=== PATIENT | male | born 1975 | race Caucasian/White ===

== ENCOUNTER 2016-06-18 10:39 | Emergency (ER) | payer OTHER | END 2016-06-18 11:20 | disposition left against medical advice (07) | LOC: ER 10:39 | DX: Z53.21 Procedure and treatment not carried out due to patient leaving prior to being seen by health care provider (principal) ==

== ENCOUNTER 2016-06-18 11:27 | Emergency (ER) | payer OTHER ==
--- NOTE | 2016-06-23 10:36 | ER ---
ADMIT: 06/18/2016 RM/LOC: ER [facility] MR#: [id number] [address] [id number] [address] [place] [address] Emergency Room Report SEX: M AGE: 40 : 1975 DATE: 06/18/2016 ADDENDUM: 40-year-old male coming in with right forearm pain. He had this operated on, I think like a week or so ago. He has fairly recently continued to have pain. However, he is not elevating it. We unwrapped this, he might have a little swelling, but nothing that we have to undo. He has no fever. We are going to rewrap it a little gentler and then he has to see his doctor later this week. CONDITION ON DISCHARGE: Good. Jose Estrada MD/ sanaz JOB #: [id number] CC: Jose Estrada MD, Attending Physician
== END 2016-06-18 15:15 | disposition home or self-care (01) ==
LOC: ER 11:27
DX: G89.18 Other acute postprocedural pain (principal); M79.631 Pain in right forearm